=== PATIENT | male | born 1975 | race Caucasian/White ===

== ENCOUNTER 2023-04-20 09:24 | Emergency (ER) | payer SELFPAY ==
--- OUTSIDE RECORDS SUMMARY | 2023-04-20 09:27 | XMS REPORT | Continuity of Care Document ---
:[address] [facility] t Address [address] [facility] [place] [address] Care Team Providers Name Role Phone COLIN CRUZ Primary Care Physician Unavailable JULITO QUINONES Attending Clinician Unavailable Julito Quinones MD Attending Clinician DELVIN ESPINOZA Attending Clinician Unavailable COLIN CRUZ Attending Clinician Unavailable Payers Payer Name Policy Type Policy Number Effective Date Expiration Date [facility] [id number] 2019 00:00:00 Problems Condition Condition Condition Status Onset Resolution Last Treating Co mments Source Name Details Category Date Date Treatment Clinician Date Type 2 Type 2 Disease Active Univers diabetes diabetes 2-20 ity of mellitus mellitus 00:00: [place] without without 00 Medical complicati complicati Br anch on, on, without without long-term long-term current current use of use of insulin insulin Lumbago Lumbago Disease Active Univers 2-25 ity of 00:00: [place] 00 Medical Branch Hyperlipid Hyperlipid Disease Active 2011-10 U nivers emia with emia with 0-22 ity of target low target [place] density density 00 Medical lipoprotei lipoprotei Br anch n (LDL) n (LDL) cholestero cholestero l less l less than 100 than 100 mg/dL mg/dL Seasonal Seasonal Disease Active Unive rs allergies allergies 6-14 ity of 00:00: [place] 00 Medical Branch Essential Essential Disease Active Uni vers hypertensi hypertensi 10-25 it y of on, benign on, benign 00:[place] Fatty Fatty Disease Active Univers liver liver 10-25 ity of 00:00: [place] [address] Medical [place] Allergies, Adverse Reactions, Alerts Allergy Allergy Status Severity Reaction(s) Onset Inactive Treating Comm ents Source Name Type Date Date Clinician CODEINE DRUG Active N/V Univers INGREDI 05-01 ity of 00:00: [place] [facility] Codeine Propensi Active Nausea Univers ty to and/or 05-01 ity of adverse Vomiting 00:00: [place] reaction Medical s Branch Social History Social Habit Start Date Stop Date Quantity Comments Source Alcohol intake 2023-03-05 2023-03-05 Current drinker Unive rsity of 00:00:00 00:00:00 of alcohol [facility] (finding) [place] Exposure to 2023-02-23 2023-03-05 Not sure [facility] SARS-CoV-2 00:00:00 00:00:00 [facility] (event) [place] Tobacco use and 2011-10-25 2011-10-25 Smokeless tobacco Un iversity of exposure 00:00:00 00:00:00 non-user [facility] Alcohol Comment 2011-10-25 2011-10-25 Rare Universit y of 00:00:00 00:00:00 [facility] Sex Ass[birth year] Universit y of 00:00:00 00:00:00 [facility] Smoking Status Start Date Stop Date Source Never smoked tobacco [facility] Medications Ordered Filled Start Stop Current Ordering Indication Dosage Frequency Signature Comments Components Source Medication Medication Date Date Medication? Clinician (SIG) Name Name lactated 2022- Yes 1000mL at 999 Univ ers ringers IV 5-20 05-20 mL/hr, ity of infusion 08:45: 20:44 1,000 mL, Joey as 1,000 mL 00 :00 IV Medical Infusion, Branch ONCE, 1 dose, On 03/05/23 at 0345, Routine NaCl 0.9% 2022- No 1000mL at 999 Uni vers (NS) bolus 5-20 05-20 mL/hr, ity of infusion 06:45: 06:42 1,000 mL, Joey as 1,000 mL 00 :00 IV Medical Infusion, Branch ONCE, 1 dose, On 03/05/23 at 0145, STAT lisinopriL- Yes [id number] 1{tbl} Take 1 Univers hydrochloro 5-20 tablet by ity of thiazide 00:00: mouth in [place] 20-25 mg 00 the Medical per tablet morning. Branc h metFORMIN Yes [id number] 1000mg Take 2 Univers 500 mg 5-20 tablets by ity of tablet 00:00: mouth in [place] 00 the Medical morning Branch and 2 tablets in the evening. Take with meals. LISINOPRIL- 2022- No [id number] TAKE ONE Univers HYDROCHLORO 6-09 05-20 TABLET BY it y of THIAZIDE 00:00: 00:00 MOUTH [place] 20-25 mg 00 :00 DAILY Medical per tablet Branch QUEtiapine 2019-0 Yes [id number] 100mg Take 1 Univers 100 mg 4-14 tablet by ity of tablet 00:00: mouth at [place] 00 bedtime. Medical May Branch increase to maximum of 2 tablets at bedtime if needed. triamcinolo 2019-0 Yes [id number] Apply to [facility] ne 3-05 area(s) 2 ity of acetonide 00:00: (two) [place] 0.1 % cream 00 times Medical daily. Branch metaxalone 2019-0 Yes [id number] 800mg Take 1 Univers (SKELAXIN) 3-05 tablet by ity of 800 mg 00:00: mouth 3 [place] tablet 00 (three) Medical times Branch daily. FISH 2020-0 Yes one by [facility] OIL-DHA-EPA 2-20 mouth ity of 1,200-144-2 15:54: three [place] 16 MG ORAL 44 times a Medica l CAP day Branch Garlic 2020-0 Yes Take by [facility] (GARLIC 2-20 mouth. ity of OIL) 1,000 15:54: [place] mg Cap 44 Medical Branch gemfibrozil 2019-0 Yes [id number] 600mg Take 1 Univers 600 mg 2-20 tablet by ity of tablet 00:00: mouth 2 [place] 00 (two) Medical times Branch daily before breakfast and dinner. metFORMIN 2019-0 2022- No [id number] 500mg Take 1 Univers 500 mg 2-20 05-20 tablet by ity of tablet 00:00: 00:00 mouth 2 [place] 00 :00 (two) Medical times Branch daily with meals. fluticasone Yes [id number] 1{spray Use 1-2 Univers (FLONASE) 9-17 } Sprays in ity o f 50 00:00: each [place] mcg/actuati 00 nostril Medic al on nasal daily. Branch spray naproxen Yes [id number] 500mg Take 1 Tab Univers (NAPROSYN) 9-17 by mouth 2 ity of 500 mg 00:00: (two) [place] tablet 00 times Medical daily with Branch meals. aspirin 81 2011-10 Yes 81mg Take 1 Tab U nivers mg EC 0-22 by mouth ity of tablet 00:00: daily. [address] Immunizations Ordered Filled Immunization Date Status Comments [facility] e Immunization Name Name Moderna COVID-19 Moderna COVID-19 2021-06-03 Completed Vaccine Vaccine 00:00:00 Moderna COVID-19 Moderna COVID-19 2021-04-26 Completed Vaccine Vaccine 00:00:00 Influenza Virus 2019-12-06 [facility] mL 00:00:00 [facility] 6+ MO Branch TDAP (ADACEL) 2019-12-06 Completed [place] of VACCINE 00:00:00 [facility] Vital Signs Vital Name Observation Time Observation Value Comments Source Systolic blood 2023-03-05 08:00:00 123 mm[Hg] Univer sity of pressure [facility] Diastolic blood 2023-03-05 08:00:00 82 mm[Hg] Unive rsity of pressure [facility] Heart rate 2023-03-05 08:00:00 72 /min [facility] Oxygen saturation in 2023-03-05 08:00:00 95 /min [facility] Arterial blood by [facility] Pulse oximetry Branch Respiratory rate 2023-03-05 06:50:00 20 /min [facility] Body temperature 2023-03-05 05:01:00 37.06 [facility] Body weight 2023-03-05 05:01:00 90.719 kg [facility] BMI 2023-03-05 05:01:00 27.12 kg/m2 [facility] Procedures Procedure Date / Time Performed Performing Clinician Cayetano rey POCT GLUCOSE 2023-03-05 08:08:00 Julito Quinones [facility] (AUTOMATED) [facility] POCT GLUCOSE 2023-03-05 07:09:00 Julito Quinones [facility] (AUTOMATED) [facility] BASIC METABOLIC PANEL 2023-03-05 05:43:00 Julito Quinones [facility] (NA, K, CL, CO2, [facility] Branch GLUCOSE, BUN, CREATININE, CA) POCT GLUCOSE 2023-03-05 04:59:00 Doctor Unassigned, No Univer [facility] (AUTOMATED) Name [facility] CONSENT/REFUSAL FOR 2023-03-05 04:53:42 Doctor Unassigned, No Un [facility] DIAGNOSIS AND Name [facility] TREATMENT Encounters Start End Encounter Admission Attending Care Care Encounter Source Date/Time Date/Time Type Type Clinicians Facility Department ID 2023-03-05 2023-03-05 Emergency X JONI, [facility] ERT [id number] Univers 00:00:00 03:25:00 JULITO odom [facility] 2023-03-05 2023-03-05 Emergency Joni, TRAU[place] [id number] Univers 00:00:00 03:25:00 Julito Rey PASSAIC [id number] ity of [id number] [facility] [id number] [address] 2021-06-03 2021-06-03 Outpatient GCCOVIDV GCCOVIDV [id number] GCCOVID 00:00:00 00:00:00 V 2021-04-26 2021-04-26 Outpatient GCCOVIDV GCCOVIDV [id number] [facility]OVID 00:00:00 00:00:00 V 2020-01-29 2020-01-29 Outpatient Bryan ESPINOZA [facility] [id number] Univers 15:30:00 15:30:00 [facility] 2019-12-20 2019-12-20 Outpatient Bryan CRUZ [facility] [id number] Univers 16:00:00 16:00:00 COLIN odom [facility] 2019-12-06 2019-12-06 Outpatient Bryan CRUZ [facility] [id number] Univers 15:40:00 16:27:23 COLIN [facility] Results Test Description Test Time Test Comments Results Result Comments Source POCT GLUCOSE (AUTOMATED) 2023-03-05 08:09:35 Test Item Value Reference Range Interpretation Comme nts POCT GLU (test code = [id number]) 347 mg/dL 70-110 H Lab Interpretation (test code = 62936-2) [facility]normal [facility]2023-03-05 07:11:14 Test Item Value Reference Range Interpretation Comments POCT GLU (test code = [id number]) 377 mg/dL 70-110 H Lab Interpretation (test code = Abnormal 01875-9) [facility] (NA, K, CL, CO2, GLUCOSE, BUN, CREATININE, CA)2023-03-05 06:00:20 Test Item Value Reference Range Interpretation Comments NA (test code = 135 mmol/L 135-145 [id number]) K (test code = 3.9 mmol/L 3.5-5.0 5153414261) CL (test code = 96 mmol/L 98-108 L [id number]) CO2 TOTAL (test code = 27 mmol/L 23-31 0404259592) AGAP (test code = 12 2-16 [id number]) BUN (test code = 12 mg/dL 7-23 [id number]) GLUCOSE (test code = 436 mg/dL 70-110 H [id number]) CREATININE (test code = 0.74 mg/dL 0.60-1.25 2106319245) CALCIUM (test code = 8.6 mg/dL 8.6-10.6 7787377449) eGFR (test code = 113.9 mL/min/1.73m2 7257694159) DHARMESH (test code = DHARMESH) Association of Glomerular Filtration Rate (GFR) and Staging of Kidney Disease* + --+ --+ ------+| GFR (mL/min/1.73 m2) ?| With Kidney Damage ?| ?Without Kidney Damage+ --------+ --------+ +| ?>90 ?| ?Stage one ?| ? Normal ?+ ---+ ---+ -------+| ?60-89 ?| ?Stage two ?| ? Decreased GFR ? + --+ --+ ------+| ?30-59 ?| ?Stage three ?| ? Stage three ? + --+ --+ ------+| ?15-29 ?| ?Stage four ? | ? Stage four ?+ ---+ ---+ -------+| ?<15 (or dialysis) ? ?| ?Stage five ? | ? Stage five ?+ ---+ ---+ -------+ *Each stage assumes the associated GFR level has been in effect for at least three months. ?Stages 1 to 5, with or without kidney disease, indicate chronic kidney disease. Notes: Determination of stages one and two (with eGFR >59mL/min/1.73 m2) requires estimation of kidney damage for at least three months as defined by structural or functional abnormalities of the kidney, manifested by either:Pathological abnormalities or Markers of kidney damage (including abnormalities in the composition of the blood or urine or abnormalities in imaging tests). Lab Interpretation Abnormal (test code = 28908-8) [facility]2023-03-05 05:02:04 Test Item Value Reference Range Interpretation Comments POCT GLU (test code = [id number]) 454 mg/dL 70-110 Lab Interpretation (test code = Abnormal 38843-9) [facility]"
--- NOTE | 2023-04-20 10:07 | EDPHYS ---
Physician Documentation [facility] Name: Tab Willingham Age: 47 yrs Sex: Male : 1975 Arrival Date: 04/20/2023 Time: 09:24 Bed 10 Private MD: ED Physician Angus Waldron HPI: 04/20 13:21 This 47 yrs old Male presents to ER via Ambulatory with complaints of Rash, Back Pain. kb 13:21 The patient presents with pain that is acute, that is chronic. The symptoms are located kb in the low back. The pain does not radiate. The problem was sustained holding girlfriend while she had a seizure. Onset: The symptoms/episode began/occurred 2 day(s) ago. Modifying factors: The patient symptoms are alleviated by nothing, the patient symptoms are aggravated by any movement. Associated signs and symptoms: The patient has no apparent associated signs or symptoms. Severity of symptoms: At their worst the symptoms were moderate, in the emergency department the symptoms are unchanged. The patient has experienced similar episodes in the past, chronically. The patient has not recently seen a physician. Pt reports he has chronic low back pain that was exacerbated by attempting to hold girlfriend while she had a seizure 2 days ago. States he has also had red spots that develop white heads that have been popping up on bilateral arms. . Historical: - Allergies: 09:31 Codeine; ld1 - PMHx: :31 Hypertensive disorder; Diabetes mellitus; ld1 - PSHx: :31 None; ld1 - Immunization history:: Adult Immunizations up to date, Client reports receiving the 2nd dose of the Covid vaccine. - Social history:: Smoking status: Patient denies any tobacco usage or history of. Patient/guardian denies using alcohol. ROS: 13:23 Constitutional: Negative for fever, chills, and weight loss. kb 13:23 Back: Positive for pain at rest, pain with movement. 13:23 Skin: Positive for abscess, of the right arm and left arm. 13:23 All other systems are negative. Exam: 13:23 Constitutional: This is a well developed, well nourished patient who is awake, alert, kb and in no acute distress. Head/Face: Normocephalic, atraumatic. ENT: Moist Mucous membranes Chest/axilla: Normal chest wall appearance and motion. Cardiovascular: Regular rate and rhythm with a normal S1 and S2. No gallops, murmurs, or rubs. No pulse deficits. Respiratory: Respirations even and unlabored. No increased work of breathing. Talking in full sentences Abdomen/GI: Soft, non-tender. No distention MS/ Extremity: Pulses equal, no cyanosis. Neurovascular intact. Full, normal range of motion. Neuro: Awake and alert, GCS 15, oriented to person, place, time, and situation. Moves all extremities. Normal gait. 13:23 Back: pain, that is mild, that is moderate, of the lumbar area, normal spinal alignment noted, CVA tenderness, is absent. 13:23 Skin: abscess, that is small, of the left arm and right arm. Vital Signs: 09:31 BP 163 / 107; Pulse 98; Resp 18; Temp 98.3(O); Pulse Ox 100% on R/A; Weight 83.91 kg; ld1 Height 5 ft. 8 in. ; Pain 9/10; 09:31 Body Mass Index 28.13 (83.91 kg, 172.72 cm) ld1 09:31 Pain Scale: Adult ld1 MDM: 09:26 Patient medically screened. kb 13:25 Differential diagnosis: strain, fracture, Herniated disc abscess, insect bite, kb cellulitis, rash. Data reviewed: vital signs, nurses notes. Test considered but Not performed: X-ray: x-ray considered, but pt had no injury or trauma. Counseling: I had a detailed discussion with the patient and/or guardian regarding: the historical points, exam findings, and any diagnostic results supporting the discharge/admit diagnosis, the need for outpatient follow up, a family practitioner, to return to the emergency department if symptoms worsen or persist or if there are any questions or concerns that arise at home. Administered Medications: 10:24 Drug: Dexamethasone IM 10 mg Route: IM; Site: left deltoid; ld1 10:24 Drug: Ketorolac IM 30 mg Route: IM; Site: right deltoid; ld1 Disposition: 14:15 Co-signature as Attending Physician, Angus HOLLINS was immediately available on-site ms3 in the Emergency Department for consultation in the care of the patient. Disposition Summary: 04/20/23 10:06 Discharge Ordered Location: Home kb Condition: Stable kb Diagnosis - Low back pain kb - Local infection of the skin and subcutaneous tissue, unspecified kb Followup: kb - With: Emergency Department - When: As needed - Reason: Worsening of condition Followup: kb - With: Private Physician - When: 2 - 3 days - Reason: Recheck today's complaints Discharge Instructions: - Discharge Summary Sheet kb - Musculoskeletal Pain kb - Skin Abscess, Outp-pz-Eylx kb Forms: - Medication Reconciliation Form kb - Thank You Letter kb - Antibiotic Education kb - Prescription Opioid Use kb - [email or web address] kb Prescriptions: - Prednisone 20 mg Oral Tablet - take 1 tablet by ORAL route once daily for 5 days; 5 tablet; Refills: 0, kb Product Selection Permitted - Bactrim DS 800-160 mg Oral Tablet - take 1 tablet by ORAL route every 12 hours for 10 days; 20 tablet; Refills: 0, kb Product Selection Permitted - orphenadrine citrate 100 mg Oral Tablet Sustained Release - take 1 tablet by ORAL route 2 times per day As needed; 20 tablet; Refills: 0, kb Product Selection Permitted Signatures: Naida Guevara, DRILL RIG OPERATOR HELPER-C DRILL RIG OPERATOR HELPER-Angus Preciado DO DO ms3 Shruti Waldron, RN RN ld1
--- NOTE | 2023-04-20 10:07 | ER ---
Nurse's Notes [facility] Name: Tab Willingham Age: 47 yrs Sex: Male : 1975 Arrival Date: 04/20/2023 Time: 09:24 Bed 10 Private MD: Diagnosis: Low back pain;Local infection of the skin and subcutaneous tissue, unspecified Presentation: 04/20 09:30 Chief complaint: Patient states: Back pain and rash to right arm. Coronavirus screen: ld1 At this time, the client does not indicate any symptoms associated with coronavirus-19. Ebola Screen: No symptoms or risks identified at this time. Initial Sepsis Screen: Does the patient meet any 2 criteria? No. Patient's initial sepsis screen is negative. Does the patient have a suspected source of infection? No. Patient's initial sepsis screen is negative. Risk Assessment: Do you want to hurt yourself or someone else? Patient reports no desire to harm self or others. Onset of symptoms was April 20, 2023. 09:30 Method Of Arrival: Ambulatory ld1 09:30 Acuity: BARBIE 3 ld1 Triage Assessment: :31 General: Appears in no apparent distress. comfortable, Behavior is calm, cooperative, ld1 appropriate for age. Pain: Complains of pain in back Pain does not radiate. Pain currently is 9 out of 10 on a pain scale. Quality of pain is described as throbbing. EENT: No signs and/or symptoms were reported regarding the EENT system. Neuro: Level of Consciousness is awake, alert, obeys commands, Oriented to person, place, time, situation. Cardiovascular: Capillary refill < 3 seconds Patient's skin is warm and dry. Respiratory: Airway is patent Respiratory effort is even, unlabored. GI: Abdomen is flat, non-distended. : No signs and/or symptoms were reported regarding the genitourinary system. Derm: Rash noted that is. Musculoskeletal: No signs and/or symptoms reported regarding the musculoskeletal system. Historical: - Allergies: : Codeine; ld1 - PMHx: Hypertensive disorder; Diabetes mellitus; ld1 - PSHx: : None; ld1 - Immunization history:: Adult Immunizations up to date, Client reports receiving the 2nd dose of the Covid vaccine. - Social history:: Smoking status: Patient denies any tobacco usage or history of. Patient/guardian denies using alcohol. Screenin:29 [facility] ED Fall Risk Assessment (Adult) History of falling in the last 3 months, ss including since admission No falls in past 3 months (0 pts). Abuse screen: Denies threats or abuse. Denies injuries from another. Nutritional screening: No deficits noted. Tuberculosis screening: Never had TB. Assessment: 10:29 General: Appears in no apparent distress. comfortable, Behavior is calm, cooperative. ss Neuro: Level of Consciousness is awake, alert, obeys commands. Respiratory: Airway is patent Respiratory effort is even, unlabored. Derm: Skin is pink, warm \T\ dry. normal. Vital Signs: 09:31 BP 163 / 107; Pulse 98; Resp 18; Temp 98.3(O); Pulse Ox 100% on R/A; Weight 83.91 kg; ld1 Height 5 ft. 8 in. ; Pain 9/10; 09:31 Body Mass Index 28.13 (83.91 kg, 172.72 cm) ld1 09:31 Pain Scale: Adult ld1 ED Course: 09:25 Patient arrived in ED. rg4 09:26 Naida Guevara FNP-C is [facility] kb 09:26 Angus Waldron DO is Attending Physician. kb 09:31 Triage completed. ld1 09:31 Arm band placed on right wrist. ld1 10:29 Patient has correct armband on for positive identification. ss 10:29 No provider procedures requiring assistance completed. Patient did not have IV access ss during this emergency room visit. Administered Medications: 10:24 Drug: Dexamethasone IM 10 mg Route: IM; Site: left deltoid; ld1 10:24 Drug: Ketorolac IM 30 mg Route: IM; Site: right deltoid; ld1 Medication: 10:29 VIS not applicable for this client. ss Outcome: 10:06 Discharge ordered by . kb 10:29 Discharged to home ambulatory. ss 10:29 Condition: good 10:29 Discharge instructions given to patient, Instructed on discharge instructions, follow up and referral plans. medication usage, Demonstrated understanding of instructions, follow-up care, medications, Prescriptions given X 3. 10:30 Patient left the ED. ss Signatures: Naida Guevara FNP-C FNP-Ckb Blanchard, [place], RN RN Kate Rae rg4 Shruti Waldron, RN RN ld1
[2023-04-20] MEDS ORDERED: KETOROLAC 30 MG/ML INJ ONE (10:28)
[2023-04-20] MEDS ORDERED: dexAMETHasone 10 MG/ML VIAL ONE (10:28)
[2023-04-20 10:34] VITALS: BP 163/107; TEMP 98.3; O2SAT 100
== END 2023-04-20 10:30 | disposition home or self-care (01) ==
LOC: ER 09:24
DX: M54.50 Low back pain, unspecified (principal); L08.9 Local infection of the skin and subcutaneous tissue, unspecified
CPT/HCPCS: 96372; 99284; J1100